=== PATIENT | male | born 1965 | race Caucasian/White ===

== ENCOUNTER → 2020-08-20 14:26 | Outpatient (CLI) | payer OTHER, SELFPAY ==
--- NOTE | 2020-08-20 14:31 | DI.RAD.S_ITS ---
PROCEDURE: XR LUMBAR SPINE MIN 4V INDICATIONS: Progressive low back pain TECHNIQUE: 5 views of the lumbar spine were acquired. COMPARISON: Outside Facility, [facility], MRI L-SPINE W/O CONTRAST, 04/20/2019, 14:54. FINDINGS: Bones: 5 nonrib-bearing vertebrae are present. There is a rudimentary S1-S2 disc. The degenerative changes are most pronounced at what is considered L5-S1. This segmentation anatomy is based on the available plain film imaging and may be different from that described in an outside MRI from 04/20/19 for which a report is currently available. There is normal bony alignment. No vertebral body compression fractures. Note is made of moderately severe L5-S1 degenerative disc height reduction and plate osteophyte formation and associated bilateral facet osteoarthritis that is moderately severe involving L5-S1. No suspicious bony lesions. Note is made of mild degenerative disc disease Soft tissues: Overlying bowel gas pattern is normal. No suspicious soft tissue calcifications. Oblique images: No pars defects. 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 The lowest vertebral element associated with visualized ribs on the lateral view is considered T12. Therefore, the most pronounced degree of degenerative disc disease is considered anatomic lead to be located at L5-S1. Please note that this may represent a variance from the available report description of segmentation anatomy from MRI of the LS spine from April of last year. This is an outside MR study. Correlation with the thoracic spine segmentation could be performed to confirm the exact anatomy. The degree of degeneration present above what is considered L5-S1 is quite mild and not likely to be associated with spinal or foraminal stenosis. At what is considered to be L5-S1 there is overall moderately severe spinal and foraminal stenosis suspected and significant nerve root impingement may be present at this level. Dictated by: Antonio Armenta M.D. on 08/20/2020 at 15:19 Approved by: Antonio Armenta M.D. on 08/20/2020 at 15:25
== END ==
PROVIDERS: Referring Provider Physical Medicine & Rehabilitation; Visit Provider Physical Medicine & Rehabilitation
DX: M54.5 Low back pain (principal); M51.17 Intervertebral disc disorders with radiculopathy, lumbosacral region
CPT/HCPCS: 72110